=== PATIENT | female | born 1950 | race Caucasian/White ===

== ENCOUNTER 2017-10-24 08:39 | Day surgery (SDC) | payer MEDICARE, MEDICAID ==
[~2017-10-24] VITALS: Ht 160 cm; Wt 66.7 kg
[2017-10-24] MEDS ORDERED: fentaNYL 0.05 MG/ML VIAL ONE (09:57)
[2017-10-24] MEDS ORDERED: LIDOCAINE VISCOUS 2% 20 ML UDC ONE (09:57)
[2017-10-24] MEDS ORDERED: MIDAZOLAM 2 MG/2 ML VIAL ONE (09:57)
== END 2017-10-24 11:12 | disposition home or self-care (01) ==
LOC: MDS 08:39 → MMU 08:40 → MDS 11:12
PROVIDERS: ATTEND Internal Medicine Gastroenterology
DX: K44.9 Diaphragmatic hernia without obstruction or gangrene (principal); E66.3 Overweight; Z79.899 Other long term (current) drug therapy; M19.90 Unspecified osteoarthritis, unspecified site
CPT/HCPCS: 36415; 82948; 86677; J2250; J3010

== ENCOUNTER 2020-01-16 08:28 | Day surgery (SDC) | payer OTHER ==
[2020-01-16] MEDS ORDERED: LIDOCAINE 2% 100 MG/5 ML UJET TP ONE (11:43)
[2020-01-16] MEDS ORDERED: fentaNYL 0.05 MG/ML VIAL ONE (11:43)
[2020-01-16] MEDS ORDERED: fentaNYL 0.05 MG/ML VIAL IVP ONE (12:20)
== END 2020-01-16 12:38 | disposition home or self-care (01) ==
LOC: MDS 08:28 → MMU 08:30 → MDS 12:38
PROVIDERS: ATTEND Internal Medicine Gastroenterology
DX: R19.5 Other fecal abnormalities (principal); K57.30 Diverticulosis of large intestine without perforation or abscess without bleeding; E66.3 Overweight
CPT/HCPCS: 45378; J3010